=== PATIENT | female | born 1955 ===

== ENCOUNTER 2021-10-30 12:43 | Inpatient (IN) | payer MEDICARE, OTHER ==
[~2021-10-30] VITALS: Ht 165.1 cm; Wt 88.5 kg
[2021-10-30 14:15] LABS: HEMOGLOBIN 14.1 gm/dl (12.3-15.3); RED BLOOD COUNT 4.36 M/UL (4.00-5.10); WHITE BLOOD COUNT 8.9 K/UL (4.5-11.0)
[2021-10-30 14:38] LABS: BUN/CREATININE RATIO 13 (0-10)
[2021-10-30] MEDS ORDERED: LEVOTHYROXINE100 MCG PO (16:53)
[2021-10-30] MEDS ORDERED: GLYBURIDE5 MG PO (16:53)
[2021-10-30] MEDS ORDERED: LISINOPRIL10 MG PO (16:54)
[2021-10-30] MEDS ORDERED: JANUVIA100 MG PO (16:54)
[2021-10-30] MEDS ORDERED: AMLODIPINE BESY10 MG PO (16:54)
[2021-10-30] MEDS ORDERED: PAROXETINE HCL30 MG PO (16:54)
[2021-10-30] MEDS ORDERED: CARVEDILOL12.5 MG PO (16:55)
[2021-10-30] MEDS ORDERED: ATORVASTATIN CA40 MG PO (16:55)
[2021-10-30] MEDS ORDERED: HUMULIN 70100 UNIT/2 INJ (16:56)
[2021-10-30] MEDS ORDERED: TYLENOL EXTRA500 MG PO (16:56)
[2021-10-31 08:05] LABS: HEMOGLOBIN 12.8 gm/dl (12.3-15.3); RED BLOOD COUNT 4.09 M/UL (4.00-5.10); WHITE BLOOD COUNT 6.8 K/UL (4.5-11.0)
--- NOTE | 2021-11-01 03:59 | NUR ---
md aware of patient sats. md stated to put on cpap with a rate of 14 if sats stayed below 88. respitory was informed but they said they did not feel comfortable putting her on cpap without an abg. clarified with md if he wanted to do an abg before putting her on cpap and he did not want an abg.
--- NOTE | 2021-11-01 04:10 | NUR ---
SPOKE WITH RESPITORY AGAIN FOR THEM TO COME PLACE THE CPAP ON THE PATIENT.
[2021-11-01 05:29] LABS: WHITE BLOOD COUNT 5.4 K/UL (4.5-11.0)
[2021-11-01 05:39] LABS: HEMOGLOBIN 15.1 gm/dl (12.3-15.3); RED BLOOD COUNT 4.73 M/UL (4.00-5.10)
--- NOTE | 2021-11-02 00:23 | NUR ---
2219 DIRECTOR GEOTHERMAL OPERATIONS CALLED O2 SAT 75% ON 100% FI02 BIPAP RR 40 RESPIRATIONS LABORED IRREGULAR AND SHALLOW, HR 100 SINUS BP 180/122. MD ORDERED CXR AND ABG. CLARIFIED DNI STATUS WITH PT, PT IS A&O X3 STATES SHE DOES NOT WANT INTUBATION. 2308 MOOKIE QUEZADA NOTIFED OF PT STATUS, O2 SAT 75% ON 100% FI02 RR 35 RESPIRATIONS LABORED IRREGULAR AND SHALLOW. NO NEW ORDERS. 0010 PT SPOUSE NOTIFIED OF PT CONDITION.
--- NOTE | 2021-11-02 03:19 | NUR ---
0235 AT BEDSIDE PT STATES SHE WISHES TO BE INTUBATED AND CHANGE CODE STATUS TO FULL CODE. PT INTUBATED AT 0256 BY MOOKIE QUEZADA ET TUBE 22 @ LIP. PT TRANSPORTED TO ICU WITH RT ON VENT. REPORT GIVEN TO PRICILLA CHACKO PRIOR TO TRANSFER WITH ABILITY TO ASK QUESTIONS.
[2021-11-02 05:30] LABS: HEMOGLOBIN 16.3 gm/dl (12.3-15.3); RED BLOOD COUNT 5.07 M/UL (4.00-5.10)
--- NOTE | 2021-11-02 12:49 | NUR ---
1240, PATIENT PRONED, TOLERATED WELL RESP THERAPIST X4 AND 5 RNS AT BEDSIDE
[2021-11-03 06:04] LABS: HEMOGLOBIN 16.3 gm/dl (12.3-15.3); RED BLOOD COUNT 5.06 M/UL (4.00-5.10); WHITE BLOOD COUNT 11.8 K/UL (4.5-11.0)
[2021-11-04 05:46] LABS: WHITE BLOOD COUNT 11.8 K/UL (4.5-11.0)
[2021-11-04 05:53] LABS: HEMOGLOBIN 14.3 gm/dl (12.3-15.3); RED BLOOD COUNT 4.38 M/UL (4.00-5.10)
[2021-11-05 05:53] LABS: HEMOGLOBIN 14.4 gm/dl (12.3-15.3); RED BLOOD COUNT 4.3 M/UL (4.00-5.10); WHITE BLOOD COUNT 12.9 K/UL (4.5-11.0)
[2021-11-06 06:06] LABS: HEMOGLOBIN 14.6 gm/dl (12.3-15.3); RED BLOOD COUNT 4.44 M/UL (4.00-5.10); WHITE BLOOD COUNT 13.8 K/UL (4.5-11.0)
[2021-11-07 05:54] LABS: HEMOGLOBIN 14.8 gm/dl (12.3-15.3); RED BLOOD COUNT 4.44 M/UL (4.00-5.10); WHITE BLOOD COUNT 13.2 K/UL (4.5-11.0)
[2021-11-08 04:54] LABS: HEMOGLOBIN 15.1 gm/dl (12.3-15.3); RED BLOOD COUNT 4.51 M/UL (4.00-5.10); WHITE BLOOD COUNT 13.3 K/UL (4.5-11.0)
[2021-11-09 05:01] LABS: HEMOGLOBIN 14.9 gm/dl (12.3-15.3); RED BLOOD COUNT 4.62 M/UL (4.00-5.10); WHITE BLOOD COUNT 17.4 K/UL (4.5-11.0)
[2021-11-10 03:50] LABS: HEMOGLOBIN 16.6 gm/dl (12.3-15.3); WHITE BLOOD COUNT 21.6 K/UL (4.5-11.0)
[2021-11-10 03:57] LABS: RED BLOOD COUNT 5.28 M/UL (4.00-5.10)
[2021-11-11 03:45] LABS: HEMOGLOBIN 17.6 gm/dl (12.3-15.3); RED BLOOD COUNT 5.49 M/UL (4.00-5.10); WHITE BLOOD COUNT 17.1 K/UL (4.5-11.0)
[2021-11-11 06:54] LABS: BUN/CREATININE RATIO 26 (0-10)
[2021-11-12 04:05] LABS: WHITE BLOOD COUNT 13.3 K/UL (4.5-11.0)
[2021-11-12 04:14] LABS: HEMOGLOBIN 15.1 gm/dl (12.3-15.3); RED BLOOD COUNT 4.67 M/UL (4.00-5.10)
[2021-11-14 09:38] LABS: RED BLOOD COUNT 4.4 M/UL (4.00-5.10)
[2021-11-14 09:41] LABS: WHITE BLOOD COUNT 9.2 K/UL (4.5-11.0)
[2021-11-15 04:26] LABS: HEMOGLOBIN 14.3 gm/dl (12.3-15.3); RED BLOOD COUNT 4.51 M/UL (4.00-5.10); WHITE BLOOD COUNT 8.5 K/UL (4.5-11.0)
[2021-11-16 04:16] LABS: RED BLOOD COUNT 4.35 M/UL (4.00-5.10); WHITE BLOOD COUNT 8.4 K/UL (4.5-11.0)
[2021-11-16 04:37] LABS: BUN/CREATININE RATIO 27 (0-10)
[2021-11-17 03:46] LABS: HEMOGLOBIN 13.9 gm/dl (12.3-15.3); RED BLOOD COUNT 4.28 M/UL (4.00-5.10); WHITE BLOOD COUNT 7.7 K/UL (4.5-11.0)
[2021-11-18 03:15] LABS: HEMOGLOBIN 14.2 gm/dl (12.3-15.3); RED BLOOD COUNT 4.32 M/UL (4.00-5.10); WHITE BLOOD COUNT 6.9 K/UL (4.5-11.0)
[2021-11-18] MEDS ORDERED: LOPRESSOR 50 MG50 MG PO (16:17)
[2021-11-18] MEDS ORDERED: MYCOSTATIN CREA15 GM TOP (16:17)
[2021-11-18] MEDS ORDERED: IPRAT-ALBUT 0.5-3 ML NEB (16:17)
[2021-11-18] MEDS ORDERED: CEFUROXIME500 MG PO (16:17)
[2021-11-18] MEDS ORDERED: PROTONIX 40 MG40 M1 PO (16:17)
[2021-11-18] MEDS ORDERED: LISINOPRIL5 MG PO (16:17)
== END 2021-11-18 19:52 | disposition home health service (06) | DRG 870 ==
LOC: ER1 12:43 → CCU 16:25 → CDU 16:25 → PROG CARE 16:25 → CCU 11-02 06:16 → PROG CARE 11-09 17:22
PROVIDERS: Emergency Medicine; Internal Medicine; Internal Medicine Pulmonary Disease; Physician Assistant Medical; ADMIT Internal Medicine
PROC: 8E0ZXY6 Isolation (ICD-10-PCS; principal; 2021-10-30)
PROC: XW033E5 Introduction of Remdesivir Anti-infective into Peripheral Vein, Percutaneous Approach, New Technology Group 5 (ICD-10-PCS; 2021-10-30)
PROC: 3E0333Z Introduction of Anti-inflammatory into Peripheral Vein, Percutaneous Approach (ICD-10-PCS; 2021-10-30)
PROC: 3E033XZ Introduction of Vasopressor into Peripheral Vein, Percutaneous Approach (ICD-10-PCS; 2021-10-30)
PROC: XW033H5 Introduction of Tocilizumab into Peripheral Vein, Percutaneous Approach, New Technology Group 5 (ICD-10-PCS; 2021-10-31)
PROC: 5A0935A Assistance with Respiratory Ventilation, Less than 24 Consecutive Hours, High Flow/Velocity Cannula (ICD-10-PCS; 2021-10-31)
PROC: 5A1955Z Respiratory Ventilation, Greater than 96 Consecutive Hours (ICD-10-PCS; 2021-11-02)
PROC: 0BH17EZ Insertion of Endotracheal Airway into Trachea, Via Natural or Artificial Opening (ICD-10-PCS; 2021-11-02)
PROC: 05HN33Z Insertion of Infusion Device into Left Internal Jugular Vein, Percutaneous Approach (ICD-10-PCS; 2021-11-02)
PROC: 5A09357 Assistance with Respiratory Ventilation, Less than 24 Consecutive Hours, Continuous Positive Airway Pressure (ICD-10-PCS; 2021-11-03)
PROC: 5A0945A Assistance with Respiratory Ventilation, 24-96 Consecutive Hours, High Flow/Velocity Cannula (ICD-10-PCS; 2021-11-13)
DX: A41.51 Sepsis due to Escherichia coli [E. coli] (principal); U07.1 COVID-19; J12.82 Pneumonia due to coronavirus disease 2019; J80 Acute respiratory distress syndrome; R65.21 Severe sepsis with septic shock; G92.8 Other toxic encephalopathy; N17.0 Acute kidney failure with tubular necrosis; N30.00 Acute cystitis without hematuria; Z23 Encounter for immunization; E11.65 Type 2 diabetes mellitus with hyperglycemia; N18.9 Chronic kidney disease, unspecified; I12.9 Hypertensive chronic kidney disease with stage 1 through stage 4 chronic kidney disease, or unspecified chronic kidney disease; E66.9 Obesity, unspecified; E03.9 Hypothyroidism, unspecified; E87.6 Hypokalemia; R53.81 Other malaise; Y95 Nosocomial condition; E11.22 Type 2 diabetes mellitus with diabetic chronic kidney disease; N18.30 Chronic kidney disease, stage 3 unspecified; R41.0 Disorientation, unspecified; Z83.3 Family history of diabetes mellitus; Z79.899 Other long term (current) drug therapy; Z68.32 Body mass index [BMI] 32.0-32.9, adult
CPT/HCPCS: 0240U; 31500; 36415; 36600; 70450; 71045; 80048; 80053; 80202; 81001; 82550; 82553; 82803; 82962; 83036; 83605; 83735; 83874; 83880; 84132; 84484; 85025; 85027; 85379; 86140; 87040; 87077; 87081; 87086; 87186; 92610; 93005; 94002; 94003; 94640; 94660; 94664; 94667; 94760; 96374; 97110; 97110-GP-CQ; 97116; 97116-GP-CQ; 97162; 97166; 97530; 97530-GP-CQ; 99285; C9113; J0360; J0692; J0696; J1100; J1650; J2185; J2704; J3262; J3370; J7030; J7050; J7070